=== PATIENT | male | born 1940 | race Caucasian/White ===

== ENCOUNTER 2024-02-06 08:00 | Outpatient (RCR) | payer MEDICARE, SELFPAY ==
--- NOTE | 2024-01-02 09:01 | OPREHPOC ---
Outpatient Therapy Plan of Care This is a Multidisciplinary Plan of Care that may contain components documented by all disciplines (PT, OT, and ST.) PT Problem 1 PT Problem #1 Knowledge Deficit PT Goal 1 Goal *indep with HEP Target Visit 8 PT Problem 2 PT Problem #2 Pain PT Goal 1 Goal 1* pt report pain rating at worst 6/10 2* pt report walking/standing tolerance with home activities of 30 minutes 3* self assessment LE functional scale rating of 40% limitation in activity level Target Visit 8 PT Problem 3 PT Problem #3 Impaired Flexibility PT Goal 1 Goal increase flexibility of R hip to improve mobility skills: 1* supine hamstring length with SLR to 55' 2* supine piriformis stretch with leg cross to L LE- ankle to mid thigh Target Visit 8 PT Problem 4 PT Problem #4 Impaired Strength PT Goal 1 Goal improve LE strength to increase mobility skills: 1* sit/stand with use of 1 UE 2* 5 reps sit/stand time of 22 seconds 3* 2 minute walking test distance of 380' 4* mat strengthening exercises x 20 reps with good control Target Visit 8
--- NOTE | 2024-01-02 09:01 | PTOPEVAL1 ---
Assessment and note entered by Francy Verdugo, PT Evaluation Information Assessment Status Evaluation Diagnosis R hip trochanteric bursitis M10.62 ICD-10 Condition Codes (PT) Pain in right hip M25.551,Difficulty Walking R26.2 ,R26.9,Weakness R53.1 Onset November 18, 2023 Subjective Information no trauma or injury to R hip; onset of pain in November; xray of R hip- negative; had injection in hip, eased pain few days; have had R hip bursitis in past with injection; ACTIVITY: live alone, able to perform all home and self care tasks, now take more time and pain in R hip; does not do any fitness exercises, other than walking, but due to pain cannot; stairs an issue at home, laundry in basement; does not use an assistive device, but have a cane and walker from previous surgery. Reported Pain Level Pain Score Self Report Additional Pain Score Comments pain range in the past week 5-9/10 increase pain: 20 min stand/walk; stairs decrease pain: sit/rest, heat, no pain meds--taken aleve a few times only with sleeping awaken 1-2 x/night due to hip pain Assessment PT Clinical Summary Americo has the diagnosis of R hip trochanteric bursitis. His history includes bilateral THR and low back pain with lumbar surgery. LE functional scale rating of 60% limitation in activity level. He reports decreased standing and walking tolerances due to pain. He does not use an assistive device. With the evaluation: he has tightness of R hip musculature: hamstring, IR and quad/anterior hip; weakness of hip abduction; tenderness over R sacral, posterior, lateral and anterior hip areas; 5 reps sit/stand time of 31 seconds with use of both arms; 2 minute walking test distance of 330' educated on use of a cane and discussed PRN use to decrease WB on R LE. Skilled PT services are indicated for modalities to decrease pain, therapeutic exercises to increase strength and flexibility of R hips with education for HEP and pain control. Plan of Care Interventions Elect
--- NOTE | 2024-02-06 08:44 | PTOPDC ---
Assessment and note entered by Francy Verdugo, PT Discharge Report Assessment Status Discharge Diagnosis R hip trochanteric bursitis M10.62 ICD-10 Condition Codes (PT) Pain in right hip M25.551,Difficulty Walking R26.2 ,R26.9,Weakness R53.1 Onset November 18, 2023 Subjective Information feel like he is doing better, having less pain and the stretches are helping his hips; ready to be finished with therapy; Next dr appt is in February . Reported Pain Level Pain Score 0: Self Report Additional Pain Score Comments pain range in the past week 0-3/10; R lateral hip & center of butt when wake up in the morning- ache, stiff and sore all over; stretches help;ice helps also; can be up/doing things about 1&1/2 to 2 hours; avoid stairs as able to--have to go to basement to do laundry Assessment PT Clinical Summary Americo has received a total of 8 PT sessions. Compared to the initial evaluation: pain from 5-9/10 to 0-3/10; reported standing/activity tolerance with home activities from 20 minutes to 2 hours; self assessment LE functional scale rating from 60 to 43% limitation in activity level; reported sleeping tolerance- awaken due to pain 1-2x/night to sleeping without awakening; 5 reps sit to stand time from 31 to 29 seconds, with use of both UE's; 2 minute walking test distance from 330 to 350'; flexibility of hamstrings about the same with the SLR; increase R and L LE strength; education for HEP, pain control and body mechanics completed. The goals were partially met. Discharge from PT. He is to continue with the HEP Plan of Care PT Services Indicated No
== END 2024-02-06 13:46 | disposition home or self-care (01) ==
LOC: ANHPT 08:00
PROVIDERS: PCP Internal Medicine; Visit Provider Physician Assistant Surgical
DX: M70.61 Trochanteric bursitis, right hip (principal)
CPT/HCPCS: 97014; 97110; 97116; 97140; 97161; 97530; G0283